=== PATIENT | female | born 1980 | race Two or more races ===

== ENCOUNTER → 2024-10-05 | Outpatient (CLI) | payer MEDICAID ==
--- NOTE | 2024-10-09 13:10 | DVHNC2 ---
Procedure - October 05, 2024 Pulmonary function test interpretation No obstructive or restrictive ventilatory defect. No significant bronchodilator response. FEV1 improved by 90 mL. FVC improved by 50 mL. Total lung capacity is within normal limits, 93% of predicted (4.10 L). Mild reduction in diffusion capacity, 64% of predicted; not corrected for patient's hemoglobin. MICHAEL VELAZQUEZ RESIDENT Oct 09, 2024 13:10
== END | disposition home or self-care (01) ==
LOC: RT 13:43
PROVIDERS: ATTEND Internal Medicine Pulmonary Disease
DX: Z01.811 Encounter for preprocedural respiratory examination (principal); J45.909 Unspecified asthma, uncomplicated; R06.00 Dyspnea, unspecified
CPT/HCPCS: 94060; 94727; 94729